=== PATIENT | male | born 1985 | race Caucasian/White ===

== ENCOUNTER 2022-06-29 00:55 | Emergency (ER) | payer SELFPAY ==
[2022-06-29] MEDS ORDERED: Dexamethasone 4 MG/ML SDV IVPUSH ONE (00:57)
[2022-06-29] MEDS ORDERED: Famotidine 20 MG/2 ML SDV IVPUSH ONE (00:57)
[2022-06-29] MEDS: Sodium Chloride 0.9% 10 ML Syringe FLUSH PRN ×3 (00:57→01:05)
== END 2022-06-29 02:00 | disposition home or self-care (01) ==
LOC: FB.ED 00:55
DX: T78.40XA Allergy, unspecified, initial encounter (principal); Z91.030 Bee allergy status
CPT/HCPCS: 93005; 96374; 96375; 99285-25; J1100; J3490